=== PATIENT | male | born 1985 | race African-American/Black ===

== ENCOUNTER 2017-06-09 23:11 | Emergency (ER) | payer MEDICAID ==
[~2017-06-09] VITALS: Ht 182.9 cm; Wt 122.5 kg
[2017-06-09 23:21] VITALS: Ht 182.9 cm; Wt 122.5 kg
[2017-06-10 01:38] LABS: microscopic required? NO
[2017-06-10 01:49] LABS: urine erythrocyte NEGATIVE (NEGATIVE)
[2017-06-10 03:26] VITALS: BP 125/75
== END 2017-06-10 03:26 | disposition home or self-care (01) ==
LOC: ED 23:11
PROVIDERS: Emergency Medicine
DX: S39.012A Strain of muscle, fascia and tendon of lower back, initial encounter (principal); X58.XXXA Exposure to other specified factors, initial encounter; Y93.89 Activity, other specified; Y92.89 Other specified places as the place of occurrence of the external cause; Y99.8 Other external cause status
CPT/HCPCS: J1885; Q0092